=== PATIENT | female | born 1950 | race Caucasian/White ===

== ENCOUNTER → 2016-09-26 | Outpatient (CLI) | payer BC ==
[~2016-09-26] MED LIST: ASPI-482 PO; DICY10CA3 PO; LISI-334 PO; METF500T4 PO; METO25TA9 PO; PRAS10TA9 PO; RANI300T3 PO; SIMV40TA3 PO
--- NOTE | 2016-09-26 14:08 | RAD ---
DATE: 09/26/2016 EXAM: MAMMO SHIRA SCREENING BILATERAL HISTORY: Screening study. COMPARISON: 09/21/2015 This study was interpreted with the benefit of Computerized Aided Detection (CAD). The breast parenchyma shows scattered fibroglandular densities. Breast parenchyma level B. FINDINGS: Digital MLO and CC mammograms of both breasts were obtained. Additionally digital breast tomosynthesis (3D mammography) images of both breasts in the MLO and CC projections were performed. Comparison study is dated 09/21/2015. The breast parenchyma is composed of scattered fibroglandular densities which can obscure a lesion on mammography (breast density code B). No spiculated mass is seen. No malignant appearing calcification or area of architectural distortion is noted. Benign-appearing calcifications are seen within both breasts. Digital breast tomosynthesis images demonstrate no spiculated mass or malignant appearing calcification. Since the previous examination there has been no significant interval change. IMPRESSION: BI-RADS Category 1, negative. There is no mammographic evidence of malignancy. Routine yearly screening mammography for follow-up. BI-RADS CATEGORY: 1 NEGATIVE RECOMMENDED FOLLOW-UP: 12M 12 MONTH FOLLOW-UP PQRS compliance statement: Patient information was entered into a reminder system with a target due date 09/26/2017 for the next mammogram. Mammography is a sensitive method for finding small breast cancers, but it does not detect them all and is not a substitute for careful clinical examination. A negative mammogram does not negate a clinically suspicious finding and should not result in delay in biopsying a clinically suspicious abnormality. "Our facility is accredited by the [employer] Mammography Program."
== END | disposition home or self-care (01) ==
LOC: KCIC MAMMO 11:00
PROVIDERS: ATTEND Obstetrics & Gynecology
DX: Z12.31 Encounter for screening mammogram for malignant neoplasm of breast (principal)
CPT/HCPCS: 77063; G0202; 77067

== ENCOUNTER → 2016-09-30 | Outpatient (CLI) | payer BC, MEDICARE ==
[~2016-09-30] MED LIST changes: +PANT40TA5 PO
[2016-09-30 14:15] LABS: BASO # 0.1 x10^3/uL (0.0-0.2); BASO % 1 % (0-3); EOS % 4 % (0-3); HEMATOCRIT 40.3 % (36.0-47.0); HEMOGLOBIN 13.4 g/dL (12.0-15.5); LYMPH # 1.8 x10^3/uL (1.0-4.8); LYMPH % 30 % (24-48); MEAN CORPUSCULAR HEMOGLOBIN 31 pg (25-35); MEAN CORPUSCULAR HGB CONC 33 g/dL (31-37); MEAN CORPUSCULAR VOLUME 93 fL (79-100); MONO % 8 % (0-9); NEUT % 57 % (31-73); PLATELET COUNT 155 x10^3/uL (140-400); RED BLOOD COUNT 4.35 x10^6/uL (3.50-5.40); RED CELL DISTRIBUTION WIDTH 13.1 % (11.5-14.5)
--- NOTE | 2016-09-30 14:46 | EKG ---
[facility] [address] [place] [id number] Test Date: 2016-09-30 Test Time: 14:49:49 Pat Name: RENATO ANNE Department: Room: Gender: F Frame Stylist: KIMO : 1950 Requested By: MANJEET MARTIN Order Number: [id number] Reading MD: Koki Santana Measurements Intervals [place] Rate: 64 P: 29 WI: 144 QRS: 22 QRSD: 82 T: 44 QT: 406 QTc: 423 Interpretive Statements SINUS RHYTHM NORMAL ECG RI6.01 No previous ECG available for comparison Electronically Signed On 10-01-2016 12:15:47 CDT by Koki Santana
[2016-09-30 15:01] LABS: ALBUMIN/GLOBULIN RATIO 1.3 (1.0-1.7); CALCIUM 9.1 mg/dL (8.5-10.1); CREATININE 0.6 mg/dL (0.6-1.0); GFR 100.3; POTASSIUM 4.4 mmol/L (3.5-5.1); TOTAL PROTEIN 7.2 g/dL (6.4-8.2)
--- NOTE | 2016-09-30 15:11 | RAD ---
Chest, 2 views, 09/30/2016: History: Preop evaluation Comparison is made to a study from 04/21/2011. The heart size is normal. Coronary artery stents are projected over the superior aspect of the heart. The pulmonary vascularity is normal. No pulmonary infiltrates are seen. There is no evidence of pleural fluid or pneumothorax. IMPRESSION: 1. Coronary artery disease with stents. 2. No acute cardiopulmonary abnormality is detected.
== END | disposition home or self-care (01) ==
LOC: SURGPAT 13:46
PROVIDERS: ATTEND Obstetrics & Gynecology
DX: Z01.818 Encounter for other preprocedural examination (principal); I25.10 Atherosclerotic heart disease of native coronary artery without angina pectoris
CPT/HCPCS: 36415; 71020; 80053; 83036; 85025; 93005

== ENCOUNTER 2016-10-09 06:58 | Observation (INO) | payer BC, MEDICARE ==
[~2016-10-09] VITALS: Ht 162.6 cm; Wt 78.6 kg
[2016-10-09] VITALS (11 sets, daily range): BP systolic 118–146; BP diastolic 56–71
[~2016-10-09 06:58] MED LIST changes: +ceFAZolin 2GM PREMIX 2 GM/50 ML BAG IV ONE
[2016-10-09] MEDS ORDERED: LIDOCAINE 1% 1 ML SYRINGE. ID PRN (07:00)
[2016-10-09] MEDS ORDERED: IV RINGERS,LACTATED 1000ML 1,000 ML IV SCH (07:00)
[2016-10-09] MEDS ORDERED: PROCHLORPERAZINE 10 MG/2 ML VIAL. IV PRN (07:00)
[2016-10-09] MEDS ORDERED: MORPHINE SULFATE 2 MG/ML DISP.SYRIN. IV PRN ×2 (07:00→11:15)
[2016-10-09] MEDS ORDERED: fentaNYL PF VIAL 100 MCG/2 ML VIAL IV PRN (07:00)
[2016-10-09] MEDS ORDERED: HYDROmorphone 2 MG/ML VIAL IV PRN (07:00)
[2016-10-09] MEDS ORDERED: ONDANSETRON PF 4 MG/2 ML VIAL. IV PRN ×2 (07:00→11:15)
[2016-10-09] MEDS ORDERED: BUPIVACAINE-EPI 0.25%-1:200000 MPF 30 ML VIAL. ONE (07:26)
[2016-10-09] MEDS ORDERED: ESTROGENS, CONJ VAGINAL CREAM 30GM TUBE. ONE (07:27)
[2016-10-09] MEDS ORDERED: 0.9 % SODIUM CHLORIDE 50 ML VIAL. IJ ONE (07:29)
[2016-10-09] MEDS ORDERED: DEXAMETHASONE SOD PHOS 20 MG/5 ML VIAL. ONE (07:52)
[2016-10-09] MEDS ORDERED: PROPOFOL 20 ML IV ONE (07:52)
[2016-10-09] MEDS ORDERED: LIDOCAINE 2% PF Vial for OR 5 ML VIAL. ONE (07:52)
[2016-10-09] MEDS ORDERED: fentaNYL PF VIAL 100 MCG/2 ML VIAL ONE ×3 (07:52→10:51)
[2016-10-09] MEDS ORDERED: ROCURONIUM 100 MG/10 ML VIAL. ONE (07:52)
[2016-10-09] MEDS ORDERED: ONDANSETRON PF 4 MG/2 ML VIAL. ONE (07:52)
[2016-10-09] MEDS ORDERED: MIDAZOLAM HCL/PF 2 MG/2 ML VIAL. ONE (07:52)
[2016-10-09] MEDS ORDERED: LABETALOL 20 MG/4 ML DISP.SYRIN. ONE (09:14)
[2016-10-09] MEDS ORDERED: NEOSTIGMINE 10 MG/10 ML VIAL. ONE (09:40)
[2016-10-09] MEDS ORDERED: GLYCOPYRROLATE 1 MG/5 ML VIAL. ONE (09:40)
[2016-10-09] MEDS ORDERED: SEVOFLURANE > 120 MINUTES. IH ONE (09:54)
--- NOTE | 2016-10-09 11:02 | PDOC ---
BRIEF OPERATIVE NOTE Date: Oct 09, 2016 Pre-Op Diagnosis pelvic organ prolapse with symptomatic cystocele and rectocele Post-Op Diagnosis same simple left 4-5cm ovarian cyst Procedure Performed LAVH/BSO/ anterior and posterior repairs Surgeon Dr. Shayy Mcknight Contract Administration Manager Dr. Stephanie Claire Anesthesiologist Dr. Graham Anesthesia Type: General Blood Loss 250cc IV Fluid see anesthesia records Urine Output 300cc clear via us Specimens Obtained cervix, uterus, bilateral tubes and ovaries with left ovarian simple fluid filled cyst Findings small uterus with 2-3 degree cystocele and rectocele and 2 degree uterine prolapse and enlarged 4-5 cm simple left ovarian cyst Complications none OPerative Note [id number] SHAYY MCKNIGHT MD Oct 09, 2016 11:02
[2016-10-09] MEDS ORDERED: HYDROcodone/APAP 5/325MG 1 TAB TABLET PO PRN (11:15)
[2016-10-09] MEDS ORDERED: diphenhydrAMINE 50 MG/ML VIAL IV PRN (11:15)
[2016-10-09] MEDS ORDERED: ZOLPIDEM 5 MG TABLET. PO PRN (11:15)
[2016-10-09] MEDS ORDERED: oxyCODONE/APAP 5/325 1 TAB TABLET PO PRN (11:15)
[2016-10-09] MEDS ORDERED: MAGNESIUM HYDROXIDE 2,400 MG/30 ML ORAL.SUSP. PO PRN (11:15)
[2016-10-09] MEDS ORDERED: LACTULOSE 20 GM/30 ML SOLUTION. PO PRN (11:15)
[2016-10-09] MEDS ORDERED: CALCIUM CARBONATE 500 MG TAB.CHEW PO PRN (11:15)
[2016-10-09] MEDS ORDERED: SIMETHICONE 80 MG TAB.CHEW PO PRN (11:15)
[2016-10-09] MEDS ORDERED: 0.9 % SODIUM CHLORIDE 10 ML DISP.SYRIN. IV PRN (11:15)
[2016-10-09] MEDS ORDERED: NALOXONE 0.4 MG/ML VIAL. IV PRN (11:15)
[2016-10-09] MEDS ORDERED: diphenhydrAMINE HCL 25 MG CAPSULE PO PRN (11:15)
[2016-10-09] MEDS ORDERED: MAG HYDROX/ALUMINUM HYD/SIMETH 30 ML ORAL.SUSP PO PRN (11:15)
[2016-10-09] MEDS ORDERED: PROCHLORPERAZINE 10 MG/2 ML VIAL. ONE (11:27)
[2016-10-09] MEDS: fentaNYL PF VIAL 100 MCG/2 ML VIAL IV PRN ×2 (11:45→12:09)
[2016-10-09] MEDS: KETOROLAC TROMETHAMINE 30 MG/ML INJ. IV PRN ×2 (14:41→21:43)
[2016-10-09] MEDS ORDERED: ERYTHROMYCIN 0.5% OPHTH OINTMENT 1GM TUBE. OS ONE (19:00)
--- NOTE | 2016-10-10 01:42 | ACF ---
Admission Forms Criteria PAIN MANAGEMENT GR Clinical Indications for Admission to Inpatient Care (Place 'X' for any and all applicable criteria): Hospital admission is needed for appropriate care of the patient because of 1 or more of the following are present (1)(2)(3)(4)(5): [ X]I. Severe pain requiring acute inpatient management as indicated by 1 or more of the following (2)(5)(10): [ X]a) Continuous or frequent (eg, every 2 to 4 hours) parenteral analgesics required [A] [ ]b) Necessity (ie, alternative approaches not effective) for analgesic regimen that can only be performed or initiated in inpatient setting [ ]II. Pain causing debilitation to the point of inability to function or be supported at any other level of care [ ]III. Severe side effects from pain medications as indicated by ANY ONE of the following (12)(13)(14)(15): [ ]a) Uncontrollable seizures [ ]b) Cardiac arrhythmias of immediate concern [ ]c) Dehydration that is severe or persistent [ ]d) Vomiting that is severe or persistent [ ]e) Altered mental status that is severe or persistent [ ]f) Obstipation with inadequate GI function to maintain nutrition The original [employer] content created by [employer] has been revised. The portions of the content which have been revised are identified through the use of italic text or in bold, and [facility] has neither reviewed nor approved the modified material. All other unmodified content is copyright [employer]. Please see references footnoted in the original [employer] edition 2016 Admission Criteria Met?: Yes MARYA ETIENNE Oct 10, 2016 01:42
[2016-10-10 05:56] LABS: CALCIUM 8.5 mg/dL (8.5-10.1); CREATININE 0.7 mg/dL (0.6-1.0); POTASSIUM 4.4 mmol/L (3.5-5.1)
--- NOTE | 2016-10-10 08:44 | PDOC ---
SURGICAL PROGRESS NOTE Subjective Doing well without complaints. Min vag bleeding, voiding well without catheter and eating a full/reg diet this am. Wants to go home Vital Signs Vital Signs Date Time Temp Pulse Resp B/P (MAP) Pulse Ox O2 Delivery O2 Flow Rate FiO2 10/09/16 23:12 97.7 108 16 133/66 (88) 97.7 10/09/16 22:20 Room Air 10/09/16 22:16 3.0 10/09/16 12:46 96 I&O Intake and Output 10/10/16 07:00 Intake Total 1820 ml Output Total 1400 ml Balance 420 ml Intake Oral 20 ml IV Total 1800 ml Output Urine Total 1400 ml # Voids 3 PATIENT HAS A MARSHALL: No General: Alert, Oriented X3, Cooperative, No acute distress HEENT: Atraumatic Heart: Regular rate Abdomen: Soft, No tenderness, Other (all port sites c/d/i) Extremities: No clubbing, No cyanosis, No edema Skin: No rashes, No breakdown Psych/Mental Status: Mental status NL, Mood NL Labs Laboratory Tests Test 10/09/16 11:14 10/10/16 04:00 10/10/16 05:00 Glucose (Fingerstick) 209 mg/dL (70-99) Sodium Level 136 mmol/L (136-145) Potassium Level 4.4 mmol/L (3.5-5.1) Chloride Level 102 mmol/L (98-107) Carbon Dioxide Level 23 mmol/L (21-32) Anion Gap 11 (6-14) Blood Urea Nitrogen 8 mg/dL (7-20) Creatinine 0.7 mg/dL (0.6-1.0) Estimated GFR (Cockcroft-Gault) 84.0 Glucose Level 208 mg/dL (70-99) Calcium Level 8.5 mg/dL (8.5-10.1) Hematocrit 33.7 % (36.0-47.0) Laboratory Tests Test 10/09/16 11:14 10/10/16 04:00 10/10/16 05:00 Glucose (Fingerstick) 209 mg/dL (70-99) Sodium Level 136 mmol/L (136-145) Potassium Level 4.4 mmol/L (3.5-5.1) Chloride Level 102 mmol/L (98-107) Carbon Dioxide Level 23 mmol/L (21-32) Anion Gap 11 (6-14) Blood Urea Nitrogen 8 mg/dL (7-20) Creatinine 0.7 mg/dL (0.6-1.0) Estimated GFR (Cockcroft-Gault) 84.0 Glucose Level 208 mg/dL (70-99) Calcium Level 8.5 mg/dL (8.5-10.1) Hematocrit 33.7 % (36.0-47.0) I have reviewed the following labs, vitals, nursing Cardiovascular: HTN, Other (CAD) Pulmonary: No pertinent hx Heme/Onc: No pertinent hx Problem List POD#1 s/p LAVH/BSO/anterior and posterior repairs Routine po care d/c to home NPV x 6 weeks Light/limited x [address] while on narcotic pain pills keep scheduled follow up ok to resume home meds with baby ASA and ibuprofen or aleve Call or return sooner if have any other questions or concerns not limited to but including pain unrelieved with pain meds, increased or unexplained vaginal bleeding or T>100.4 Problems: MANJEET MARTIN MD Oct 10, 2016 08:44
--- NOTE | 2016-10-10 08:47 | PDOC3 ---
Discharge Summary Visit Information Date of Admission: Oct 09, 2016 Date of Discharge: Oct 10, 2016 Admitting Diagnosis Comment: pelvic organ prolapse Brief Hospital Course Allergies Allergies Coded Allergies Type Severity Reaction Last Updated Verified atorvastatin Allergy Intermediate Rash 10/09/16 Yes meperidine Adverse Reaction Intermediate dizziness 10/09/16 Yes Vital Signs Vital Signs Date Time Temp Pulse Resp B/P (MAP) Pulse Ox O2 Delivery O2 Flow Rate FiO2 10/09/16 23:12 97.7 108 16 133/66 (88) 97.7 10/09/16 22:20 Room Air 10/09/16 22:16 3.0 10/09/16 12:46 96 Lab Results Laboratory Tests Test 10/09/16 11:14 10/10/16 04:00 10/10/16 05:00 Glucose (Fingerstick) 209 mg/dL (70-99) Sodium Level 136 mmol/L (136-145) Potassium Level 4.4 mmol/L (3.5-5.1) Chloride Level 102 mmol/L (98-107) Carbon Dioxide Level 23 mmol/L (21-32) Anion Gap 11 (6-14) Blood Urea Nitrogen 8 mg/dL (7-20) Creatinine 0.7 mg/dL (0.6-1.0) Estimated GFR (Cockcroft-Gault) 84.0 Glucose Level 208 mg/dL (70-99) Calcium Level 8.5 mg/dL (8.5-10.1) Hematocrit 33.7 % (36.0-47.0) Laboratory Tests Test 10/09/16 11:14 10/10/16 04:00 10/10/16 05:00 Glucose (Fingerstick) 209 mg/dL (70-99) Sodium Level 136 mmol/L (136-145) Potassium Level 4.4 mmol/L (3.5-5.1) Chloride Level 102 mmol/L (98-107) Carbon Dioxide Level 23 mmol/L (21-32) Anion Gap 11 (6-14) Blood Urea Nitrogen 8 mg/dL (7-20) Creatinine 0.7 mg/dL (0.6-1.0) Estimated GFR (Cockcroft-Gault) 84.0 Glucose Level 208 mg/dL (70-99) Calcium Level 8.5 mg/dL (8.5-10.1) Hematocrit 33.7 % (36.0-47.0) Brief Hospital Course Ms. Barry is a 66 old female who presented with symptomatic pelvic organ prolapse and occ pelvic pain. She underwent and LAVH/BSO with anterior and posterior repairs without complicaitons yesterday. She has had an unremarkable postoperative course and eating/drinking/ambulating and voiding well. She will go home today. Discharge Information Condition at Discharge: Improved Follow Up: Weeks Disposition/Orders: D/C to Home Scheduled Aspirin (Aspir 81), 1 TAB PO DAILY, (Reported) Dicyclomine Hcl (Dicyclomine Hcl), 1 CAP PO TID, (Reported) Dicyclomine Hcl (Dicyclomine Hcl), 20 MG PO DAILY, (Reported) Lisinopril (Lisinopril), 1 TAB PO DAILY, (Reported) Metformin Hcl (Metformin Hcl), 1 TAB PO BID, (Reported) Metoprolol Succinate (Metoprolol Succinate ( Xl )), 1 TAB PO DAILY, (Reported) Simvastatin (Simvastatin), 1 TAB PO QHS, (Reported) Scheduled PRN Pantoprazole Sodium (Pantoprazole Sodium), 1 TAB PO DAILY PRN for INDIGESTION, ( Reported) Patient Instructions Patient Instructions POD#1 s/p LAVH/BSO/anterior and posterior repairs Routine po care d/c to home NPV x 6 weeks Light/limited x [address] while on narcotic pain pills keep scheduled follow up ok to resume home meds with baby ASA and ibuprofen or aleve Call or return sooner if have any other questions or concerns not limited to but including pain unrelieved with pain meds, increased or unexplained vaginal bleeding or T>100.4 MANJEET MARTIN MD Oct 10, 2016 08:47
[2016-10-10 09:47] VITALS: BP 124/69
--- NOTE | 2016-10-10 11:26 | OP ---
DATE OF SURGERY: 10/09/2016 PREOPERATIVE DIAGNOSIS: Symptomatic pelvic organ prolapse with cystocele, rectocele and cervical and uterine descent. POSTPERATIVE DIAGNOSIS: Symptomatic pelvic organ prolapse with cystocele, rectocele and cervical and uterine descent with what appeared to be a simple left ovarian cyst, fluid filled, 4-5 cm. PROCEDURE PERFORMED: Laparoscopic-assisted vaginal hysterectomy, bilateral salpingo-oophorectomy, anterior and posterior colporrhaphy with perineoplasty. SURGEON: Dr. Manjeet Mcknight. INDUSTRIAL [employer] MAGISTRATE: Dr. Stephanie Claire. ANESTHESIOLOGIST: Dr. Graham. ANESTHESIA: General. ESTIMATED BLOOD LOSS: 250 mL. URINE OUTPUT: 300 mL, clear via Davison catheter. COMPLICATIONS: None. SPECIMENS: Cervix, uterus, bilateral tubes and ovary with a simple left ovarian fluid filled cyst as stated above. HISTORY OF PRESENT ILLNESS: This patient was taken to the operating room where general anesthesia was placed. The patient was placed in a dorsal lithotomy position in [facility]. The patient's abdomen and vagina were prepped and draped in the normal sterile fashion and a Davison catheter was inserted under sterile technique. After performing a timeout, a bivalve speculum was placed in the patient's vagina. A single-tooth tenaculum was used to grasp the anterior lip of the cervix. A 10 mL of local was circumferentially injected around the cervix for both hemodissection and hemostatic purposes later. The Valtchev uterine manipulator was placed through the endocervical os, locked on the single tooth tenaculum and the bivalve speculum was then removed. Top gloves were discarded and changed. Attention was then turned to the abdomen where a small supraumbilical skin incision was made with the scalpel and carried down to the underlying layer with curved Lita clamps to the fascia. The 5 mm Visiport was used to directly enter the abdominal cavity. Opening patient pressure was 2-3 mmHg. Direct abdominal placement was confirmed via the laparoscope. Carbon dioxide gas was used to then appropriately insufflate the abdominal cavity to maintain a pressure of 15 mmHg. Right and left 5 mm disposable Ethicon ports were placed on the right and left side after transilluminating the abdominal cavity, finding an area clear of any vessels, making a small incision and putting it under direct visualization without difficulty. The left side had some very mild adhesions, but it was lateral to the ovary. The left side did have a cystic structure on the left ovary, but it appear to be simple and fluid filled and it was not attached to anything easily mobile, picked up and no adhesions to this. So, starting at the left round ligament it was cauterized and cut with the LigaSure Advance, creating a window in the mesosalpinx, going down and making the bladder flap sharply with the monopolar tip, elevating the left tube and ovary, finding the ureter, coursing very low, staying high on the infundibulopelvic ligament, right under the ovary, cauterizing and cutting it as well, going down, obtaining the uterine vessels on the left side and this was done exactly the same on the right side. Then, starting at the right round ligament, cauterizing and cutting it, going down and further meeting that bladder flap anteriorly, elevating the right tube and ovary, it was small and normal, finding the ureter, coursing very low in the pelvis, staying high on the infundibulopelvic ligament, right under the ovary, cauterizing and cutting it, again taking the tube and ovary on this side as well, going and down and getting the right uterine vessels. At this point, the uterus was blanching and crossing contralaterally through the cardinal and broad ligaments down to the level of the uterosacral all the while making sure the bladder was down and pushing and then up on the uterus and hugging the cervix, staying vertical right neck to the cervix and taking the pedicles. Once this was done, all instruments were removed from the abdomen and attention was turned vaginally. The Valtchev and single tooth were removed. A weighted speculum was placed in the patient's vagina. Thyroid Ck clamps were placed on the anterior and posterior lips of the cervix respectively. A scalpel was used to make a circumferential incision in the cervix. There was a large cystocele and it was kind of odd, but I felt like I was going deep into the cervix, but I did not want to do bladder, so I went ahead and elevated the cervix and got in posteriorly first with the Coates scissors sharply entering the posterior cul-de-sac, placing an #0 Vicryl suture here to secure the posterior peritoneum to the vaginal cuff and tagging it with a curved Lita clamp. The needle was cut and passed off. The short weighted speculum was removed and replaced with the long weighted Gustabo speculum. At this point, I was able to take my finger around and feel the bladder. We were able to gently push up on the sides and find the anterior bladder peritoneum and get the plane here and then using the Coates scissors to delineate this plane even better, sharply entering the anterior cul-de-sac once it was clear and apparent where it was. So there was no anterior Ray-Homer put in the cul-de-sac. It was sharply entered with the Metzenbaum scissors and then the retractor was placed in the anterior cul-de-sac. Curved Usman clamps x 2 were placed on the patient's left uterosacral ligament. They were doubly clamped with curved Usman's, cut with Coates scissors and suture ligated x 2 with 0 Vicryl. A second one was taken through the vaginal cuff, securing the uterosacral ligament to the vaginal cuff, tagged with a straight Lita clamp and the needle was cut and passed off. This was done exactly the same on the right side, double clamping the uterosacrals with curved Heaneys, cutting with Coates scissors and suture ligating x 2 with #0 Vicryl, again taking the second one through the vaginal cuff and tagging it with a straight Lita clamp and cutting the needle off. At this point, the remaining pedicles on both sides were delineated with the right angle clamp and the vaginal LigaSure Max was used to take these bites, cauterizing and cutting with the Coates scissors. Once it was done, the cervix, uterus, right tube and ovary. The left ovary was enlarged with that cystic structure and it was getting ____ so it actually had kind of torn off the rest of the specimen, so the specimen was passed off. I did get a syringe and deflate some of that cystic fluid from the ovary, got about 10 mL off of clear straw-colored fluid and it then easily pulled out vaginally. All the specimen was passed off in total for permanent pathology then. The anterior bladder peritoneum was grasped with a long Allis. A sponge stick was used to examine the pedicles. Once they were dry, the long weighted speculum was removed and replaced with the short weighted speculum. A 2-0 Vicryl was taken through the anterior bladder peritoneum, left uterosacral ligament, posterior peritoneum and right uterosacral ligament, thus closing the peritoneum in a pursestring like fashion. Once this was done, the right and left uterosacral tags were clipped as well and before closing the cuff, a curved Max's were placed on the anterior cuff then it was injected with I think about 30 mL of a dilute 4 parts of injectable saline, 5 to 1 part local, so 250 mL dilute solution, 30 mL were injected in the anterior vaginal mucosa. Metzenbaum scissors were used to then open up the anterior bladder defect and sharply and bluntly with both an open Ray-Homer and the Metzenbaum scissors were used to take down the defect off the anterior vaginal mucosa. Once this was done, a series of about 5 or 6 interrupted 2-0 Vicryl sutures were placed and tagged along the way and then going back and reducing the defect and tying them. Once it was reduced, the excess vaginal mucosa was trimmed with Metzenbaum scissors and it was closed in an anterior to posterior running locked fashion, even down through the vaginal cuff and tied to that posterior vaginal cuff tag. Once this was done, the curved Max's again were placed at 4 and 7 o'clock at the introitus and about 40-50 mL of that dilute solution was used to inject on the perineal body and the posterior defect. Scalpel was used to take a wedge-shaped, rico shaped out of the introitus on the perineal body and inside and then Metzenbaum scissors were used to open up the posterior defect again sharply and bluntly using the Metzenbaum scissors and an open Ray-Homer 4 x 4 were used to gently reduce the posterior defect. Once it was reduced, about 5 interrupted 2-0 Vicryl sutures were used to reduce the posterior defect as well and then trimming the exterior posterior vaginal mucosa and closing that defect in an anterior to posterior running locked fashion. Once I got down to the introitus and the ____ opening, it was taken through and the perineal body was closed in a more like an episiotomy, reapproximating the sides and then superficially closing the skin over the top as well, kind of lengthening that perineal body a little bit and going back and then tying it vaginally. Once this was done and it was hemostatic. All gloves were discarded and changed then attention was turned back to the abdomen for a second look from above. Reinsufflated the abdominal cavity and going back in for a second look, clearing out any clots and debris, irrigating revealed hemostasis. Tisseel was placed over the cuff, right and left pericolic gutters were cleared. Once hemostasis was assured, the right and left lower quadrant ports were taken out under direct visualization, these were also hemostatic. Gas was released from the umbilical port. All three port sites were closed with 4-0 nylon at the level of the skin and injected with 10 mL of local. MANJEET MCKNIGHT MD DR: JOSIAH/taryn JOB#: [id number] / [id number]
--- NOTE | 2016-10-10 17:18 | PATHOLOGY ---
PATHOLOGY REPORT * * * * * * * * FINAL DIAGNOSIS: Uterus and attached right fallopian tube and ovary and detached left ovary, laparoscopic-assisted vaginal hysterectomy with right salpingo-oophorectomy and left oophorectomy: - Focal hemorrhage and mild chronic inflammation of exocervix. - Nabothian cysts, cervix, small. - Extensive obliteration of endometrium with replacement by thin myometrial scar. - Congestion and involutional changes of right fallopian tube. - Involutional changes of right ovary. 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 COMMENT: There is no evidence of malignancy. (JPM:mgr; 10/10/2016) REPORT ELECTRONICALLY SIGNED BY: Hayder Pandey M.D. DATE/TIME: 10/10/2016 17:17 * * * * * * * * GROSS PATHOLOGY: The specimen is received in formalin and is designated "uterus, cervix, bilateral tubes and ovaries, left ovarian cyst." The specimen is received in two parts. The first consists of a uterus with attached right fallopian tube and ovary, and a separate detached apparent left ovarian cyst. The uterus weighs 59 grams and measures up to 8.5 cm in length, 5.0 cm in width, and 3.0 cm in anterior posterior thickness. The uterine serosa is pink to grayish chung and somewhat dull. There is hemorrhagic roughening along the parametrial margins. The exocervix and distal cervix are torn. Where visible, the exocervical epithelium is chung and shows focal hemorrhage. The uterus is opened anteriorly. The endocervical canal measures approximately 3.0 cm in length and is focally disrupted and roughened. The endocervical mucosa is focally erythematous. The endometrial cavity is largely obliterated and consists of an elongate thin scar and slit-like channel within the mid portion of the uterine corpus, measuring up to 3.5 cm in length. The cavity appears largely replaced by pale guzman fibrous tissue. The myometrial wall is pink-chung, rubbery, and congested. There are no discrete masses within the myometrium. The tortuous distal fimbriated right fallopian tube remnant measures up to 3.4 cm in length and 0.6 cm in width. The serosa is pink-guzman and focally erythematous. This is attached chung partially cerebriform atrophic appearing ovary measuring up to 2.0 cm in greatest dimension. Sectioning reveals a pink-chung cut surface with pale chung corpora albicans. The left fallopian tube is not identified. The detached left ovary is cystic and fluctuant and measures up to 5.0 cm in greatest dimension. The external surface is pink-guzman and without papillary excrescences. The ovary is opened and contains clear fluid. The cyst lining is pale guzman to pinkish red and smooth and without papillary excrescences. Portions of the wall of the cyst measure less than 0.1 cm in thickness. There are focal yellow-chung slightly thickened areas of the cyst wall. Sections are submitted as follows: A1 sections from cervix and endocervix A2-A4 endomyometrium A5 right fallopian tube and ovary A6 cystic left ovary (JPM:mgr; 10/09/2016) INITIAL CPT CODE(S): 17734 Professional services performed by [facility] [place] [address] Technical services performed by [facility] at [address] [place] [address], [address], [place] [address]. SPECIMEN(S) RECEIVED: A.Uterus, cervix, bilateral tubes and ovaries, left ovarian cyst CLINICAL HISTORY: Rectocele, uterine prolapse, cystocele, midline, recurrent UTI PATIENT: RENATO ANNE /AGE: 7 1950 (Age: 66) PATIENT #: [id number] ALT CASE #: SPECIMEN COLLECTION DATE: 10/09/2016 SPECIMEN RECEIVED DATE: 10/09/2016 [facility] - [id number] [place] [address] - PHONE: [phone] * * * END OF REPORT * * *
== END 2016-10-10 11:28 | disposition home or self-care (01) ==
LOC: SURG 06:58 → 3 NORTH 11:40
PROVIDERS: ADMIT Obstetrics & Gynecology; ATTEND Obstetrics & Gynecology
DX: N81.4 Uterovaginal prolapse, unspecified (principal); N81.10 Cystocele, unspecified; N81.6 Rectocele
CPT/HCPCS: 36415; 56810; 57260; 58552; 80048; 82962; 85014; 86850; 86900; 86901; 88307; 96374; 96376; C1769; G0378; G0379; J0690; J0780; J1100; J1885; J2250; J2405; J2704; J2710; J3010; J3490; J7030; J7120; J2001

== ENCOUNTER → 2019-02-22 | Outpatient (CLI) | payer MEDICARE ==
[~2019-02-22] MED LIST changes: +METF500T16 PO; -METF500T4 PO; +METO-239 PO; -METO25TA9 PO; -PANT40TA5 PO; +PANT40TA77 PO; +SIMV40TA18 PO; -SIMV40TA3 PO; -ceFAZolin 2GM PREMIX 2 GM/50 ML BAG IV ONE
--- NOTE | 2019-02-22 15:11 | KCIC ---
Bilateral digital screening mammograms with 3-D tomosynthesis: Reason for examination: Routine screening. Comparison is made to previous studies dated 09/26/2016 and 09/21/2015. Bilateral mammograms in CC and oblique projections were obtained with 2-D imaging and 3-D tomosynthesis imaging on a [employer] Inspiration unit and reviewed on the workstation. Interpretation was made with the benefit of CAD. The skin and nipples show no abnormalities. No abnormal axillary lymph nodes are seen. The breast parenchyma is predominantly fatty. (Breast density: Category A.) There are no dominant masses, suspicious calcifications or architectural distortion. Scattered benign calcifications are seen. Impression: No evidence of malignancy. Recommend routine screening. BI-RAD Category 2: Benign. "Our facility is accredited by the [employer] Mammography Program." This patient's information has been entered into a reminder system for the patient to be notified with the results of her examination and a target date for the next mammogram. Electronically signed by: Cassie Neal MD (02/22/2019 3:08 PM) [id number]
== END | disposition home or self-care (01) ==
LOC: KCIC MAMMO 11:58
PROVIDERS: ATTEND Obstetrics & Gynecology
DX: Z12.31 Encounter for screening mammogram for malignant neoplasm of breast (principal); N64.89 Other specified disorders of breast
CPT/HCPCS: 77063; 77067

== ENCOUNTER → 2020-01-02 | Outpatient (CLI) | payer MEDICARE ==
[~2020-01-02] MED LIST changes: +IOHEXOL 240 MG/ML 50ML VIAL. PO ONE; +IOHEXOL 300 MG/ML 100ML VIAL. IV ONE
--- NOTE | 2020-01-02 17:27 | KCIC ---
EXAM: CT Abdomen and Pelvis with IV contrast INDICATION: Reason: LOWER ABDOMINAL PAIN / Spl. Instructions: ORAL AND IV OMNI 300 89ml / History: PRIOR CT A/P 08/22/14 TECHNIQUE: Multi-detector row CT images were acquired from the lung bases through the abdomen and pelvis with the use of IV contrast. Sagittal and coronal images were acquired from the transaxial data. All CT scans performed at this facility utilize dose optimization techniques as appropriate to the exam, including the following: Automated exposure control and adjustment of the mA and/or KV according to patient size (this includes techniques or standardized protocols for targeted exams where dose is indication/reason for exam). IV CONTRAST: Administered ORAL CONTRAST: Administered COMPARISON: Abdomen pelvis CT with oral and IV contrast of 08/22/2014 FINDINGS: LOWER CHEST: Coronary calcifications and stents redemonstrated. LIVER: Unremarkable BILIARY SYSTEM: Gallbladder is unremarkable. Bile ducts are not dilated. PANCREAS: Unremarkable SPLEEN: Unremarkable ADRENALS: Unremarkable KIDNEYS & URETERS: Right renal cysts are unchanged and requiring no additional imaging follow-up. Kidneys otherwise unremarkable. BLADDER: Diffuse bladder wall thickening evident previously has improved but there is a small dot of intraluminal gas that is unexplained. REPRODUCTIVE ORGANS: Hysterectomy. Ovaries not seen and may be surgically absent as well. This is new from prior. GASTROINTESTINAL: Stomach and small bowel are unremarkable. Large bowel is unremarkable up to the splenic flexure where diffuse wall thickening and mild pericolonic stranding is seen extending down to the sigmoid colon. The appendix is normal. MESENTERY/PERITONEUM/RETROPERITONEUM: Unremarkable VASCULAR: Scattered arterial calcifications. No aneurysm LYMPH NODES: No adenopathy OSSEOUS & SOFT TISSUES: Posterior decompressive surgical changes at L5-S1 the setting of a disc osteophyte complex. No acute or aggressive appearing osseous lesions. IMPRESSION: 1. Findings compatible with mild descending colitis. No bowel obstruction or perforation. 2. Small focus of gas in the urinary bladder lumen is of uncertain etiology. Status post interval hysterectomy, a vaginovesical fistula is possible. Correlate with the clinical history. Electronically signed by: Demetri Triplett MD (01/02/2020 5:24 PM) [id number]
== END ==
LOC: KCIC CT 12:27
PROVIDERS: ATTEND Internal Medicine Gastroenterology
DX: K52.89 Other specified noninfective gastroenteritis and colitis (principal); R10.30 Lower abdominal pain, unspecified; K62.5 Hemorrhage of anus and rectum; M25.78 Osteophyte, vertebrae
CPT/HCPCS: 74177; 82565; Q9966; Q9967

== ENCOUNTER → 2020-02-24 | Outpatient (CLI) | payer MEDICARE ==
[~2020-02-24] MED LIST changes: -IOHEXOL 240 MG/ML 50ML VIAL. PO ONE
--- NOTE | 2020-02-24 14:03 | KCIC ---
EXAM: Abdomen and pelvis CT angiogram with intravenous contrast. HISTORY: Colitis. TECHNIQUE: Computed tomographic images of the abdomen and pelvis were obtained with contrast. Multipl sonya reformatting was performed. Three-dimensional maximum intensity projection images were obtained. *One or more of the following individualized dose reduction techniques were utilized for this examina tion: 1. Automated exposure control. 2. Adjustment of the mA and/or kV according to patient size. 3. Use of iterative reconstruction technique. COMPARISON: 08/22/2014. FINDINGS: Evaluation of the lower thorax demonstrates posterior dependent atelectasis. There is no in filtrate or pleural effusion. The heart is normal in size. There is no suspicious hepatic lesion. The gallbladder is distended, likely due to the preprandial status of the patient. There is a small prox imal duodenal diverticulum. The pancreas is unremarkable. The spleen is upper normal in size. The adr enal glands are unremarkable. There are small simple right renal cysts. Follow-up is not routinely recommended for simple renal cys ts. There is no appendicitis. There is no bowel obstruction. There is no abnormal bowel wall thickeni ng. The bladder is unremarkable. The uterus is absent. The aorta is normal in caliber. There is calcified atherosclerotic plaque involving the aorta and rosendo n aortic branch vessels. This results in less than 50 percent stenosis at the origins of the celiac a xis and superior mesenteric artery. There is also less than 50 percent stenosis at the origins of the renal arteries. The inferior mesenteric artery is patent. 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 There is relative hypodensity within the left renal vein lateral to the varix due to suspected mixing of contrast. This extends to the left renal artery. There are degenerative changes involving the spine. This includes a broad-based left paracentral to f oraminal disc protrusion and osteophyte complex at L5-S1. There is moderate bilateral facet arthropat hy this level and there are partial laminectomy changes at this level. There is moderate left and mil d right foraminal stenosis. There is suspected pelvic floor relaxation. IMPRESSION: 1. Resolution of previously suspected colitis. 2. Partially calcified atherosclerotic plaque involving the aorta and aortic branch vessels. This res ults in less than 50 percent stenosis involving the celiac axis, superior mesenteric artery, renal ar teries and inferior mesenteric artery. 3. Small simple appearing right renal cysts. Follow-up isn't routinely recommended for simple cysts. 4. Left gonadal vein varix. Electronically signed by: Mariajose Caballero MD (02/24/2020 1:58 PM) [id number]
== END ==
LOC: KCIC CT 10:40
PROVIDERS: ATTEND Internal Medicine Gastroenterology
DX: N28.1 Cyst of kidney, acquired (principal); K52.9 Noninfective gastroenteritis and colitis, unspecified; M25.78 Osteophyte, vertebrae; I70.0 Atherosclerosis of aorta; N32.89 Other specified disorders of bladder
CPT/HCPCS: 74174; 82565; Q9967

== ENCOUNTER → 2020-12-06 | Outpatient (CLI) | payer MEDICARE ==
[~2020-12-06] MED LIST changes: -LISI-334 PO; +LISI20TA18 PO
--- NOTE | 2020-12-06 15:54 | KCIC ---
CT angiography of the abdomen 12/06/2020 INDICATION: Celiac artery stenosis. COMPARISON STUDY: CTA February 24, 2020 TECHNIQUE: Multidetector CT imaging of the abdomen was performed following the administration of IV c ontrast. 3-D reconstructions of abdominal vasculature were created on an independent workstation and reviewed. FINDINGS: The abdominal aorta is unremarkable in course and caliber without evidence of aneurysm or d issection. Mild diffuse atherosclerotic vascular disease is seen. There is approximately 25 % stenosi s of the proximal celiac artery. Superior mesenteric artery is patent. There are 2 right-sided renal arteries both of which are patent. Single left sided renal artery is patent. Inferior mesenteric andrea ry is patent. The bilateral common iliac arteries appear to be grossly patent. There is a prominent c ommunication between the inferior mesenteric vein and left gonadal vein possibly due to a stenosis of the splenic vein at the confluence with the superior mesenteric vein. The appearance suggests that t his is most likely incidental. Lung bases are unremarkable. Probable cholelithiasis noted. Liver is u nremarkable. Spleen is unremarkable. Adrenal glands are unremarkable. Pancreas is unremarkable. Kidne ys are grossly unremarkable. Visualized bowel is grossly unremarkable. No acute osseous changes are i dentified. IMPRESSION: 1. 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 2. No other significant mesenteric or aortoiliac stenosis is identified 3. Probable cholelithiasis CT DOSING PQRS STATEMENT: One or more of the following individualized dose reduction techniques were utilized for this examinat ion: 1. Automated exposure control 2. Adjustment of the mA and/or kV according to patient size 3. Use of iterative reconstruction technique Electronically signed by: Brock Page MD (12/06/2020 3:51 PM) [id number]
== END ==
LOC: KCIC CT 13:36
PROVIDERS: ATTEND Family Medicine
DX: I77.4 Celiac artery compression syndrome (principal); I25.10 Atherosclerotic heart disease of native coronary artery without angina pectoris
CPT/HCPCS: 74175; 82565; Q9967

== ENCOUNTER → 2021-01-22 | Outpatient (CLI) | payer MEDICARE ==
[~2021-01-22] MED LIST changes: -IOHEXOL 300 MG/ML 100ML VIAL. IV ONE
--- NOTE | 2021-01-22 16:56 | KCIC ---
EXAMINATION: US ABDOMEN COMPLETE 01/22/2021 9:02 AM INDICATION: Right flank pain cholelithiasis on CT TECHNIQUE: Mccarty scale and color Doppler ultrasound images of the abdomen were obtained. COMPARISON: CT abdomen pelvis 12/05/2020. FINDINGS: Liver: The liver is normal in size measuring 13 cm in length. There is diffusely increased hepatic ec hogenicity. No focal liver lesion. Gallbladder: The gallbladder is normal in caliber. Small echogenic shadowing calculi in the gallblad teresa lumen. Gallbladder wall is normal in thickness measuring 1.6 mm. Bile ducts: The common bile duct is normal measuring 2 mm. No intrahepatic biliary duct dilatation. Kidneys: The right kidney measures 10.2 x 5.0 x 5.2 cm. The left kidney measures 11.3 x 4.4 x 4.6 cm . Normal cortical thickness and echogenicity bilaterally. No hydronephrosis. There is a 1.5 cm simp le cyst in the right kidney. Spleen: Spleen is normal measuring 11 cm. Other: The mid and distal abdominal aorta are normal in caliber. Proximal aorta, pancreas, and inferi or vena cava are not well visualized due to bowel gas. IMPRESSION: 1. Hepatic steatosis. 2. Cholelithiasis. 3. Proximal abdominal aorta, pancreas, inferior vena cava are partially obscured by bowel gas. Electronically signed by: Constance Jean MD (01/22/2021 4:54 PM) [id number]
== END ==
LOC: KCIC US 08:44
PROVIDERS: ATTEND Physician Assistant
DX: K80.20 Calculus of gallbladder without cholecystitis without obstruction (principal); K76.0 Fatty (change of) liver, not elsewhere classified
CPT/HCPCS: 76700

== ENCOUNTER → 2021-02-25 | Outpatient (CLI) | payer MEDICARE ==
--- NOTE | 2021-02-25 13:44 | KCIC ---
Bone Densitometry History: Menopause Findings: Bone Densitometry was performed with dual photon absorption of the lumbar spine and proximal femurs. Lumbar Spine: Bone density is 1.269 g/cm2 for L1-L4. T-score is 2.0. Z-score is 4.1. Left femoral neck: Bone density is 0.914 g/cm2. T-score is -0.2. Z-score is 1.2. IMPRESSION: Bone mineral densities of the lumbar spine and femoral necks are normal. World Health Organization definition of osteoporosis and osteopenia for women: normal equal s T score at or above -1.0 standard deviations; osteopenia equals T score between -1.0 and -2.5 stand antelmo deviations; osteoporosis equals T score at or below -2.5 standard deviations. Electronically signed by: Constance Jean MD (02/25/2021 1:41 PM) [id number]
--- NOTE | 2021-02-25 14:42 | KCIC ---
Bilateral digital screening mammograms with 3-D tomosynthesis: Reason for examination: Routine screening. Comparison is made to previous studies dated back to 09/07/2014. Bilateral mammograms in CC and oblique projections were obtained with 2-D imaging and 3-D tomosynthes is imaging on a [employer] Inspiration unit and reviewed on the workstation. Interpretation was made with the benefit of CAD. The skin and nipples show no abnormalities. No abnormal axillary lymph nodes are seen. The breast par enchyma is predominantly fatty. (Breast density: Category A.) There appears to be a small new nodular density in the left breast medially on the cc view probably around the 9:00 position measuring appro ximately 4 mm in size and located approximately 6.5 cm from the nipple. Further evaluation with ultra sound is recommended. There are no other new dominant masses, suspicious calcifications or architectu ral distortion. Impression: Small 4 mm nodular density medially in the left breast seen on cc view probably around the 9:00 posit ion 6.5 cm from nipple. Recommend further evaluation with ultrasound. BI-RAD Category 0: Incomplete. Needs additional imaging evaluation. "Our facility is accredited by the [employer] Mammography [employer]." This patient's information has been entered into a reminder system for the patient to be notified wit h the results of her examination and a target date for the next mammogram. Electronically signed by: Cassie Neal MD (02/25/2021 2:39 PM) [id number]
== END ==
LOC: KCIC MAMMO 12:48
PROVIDERS: ATTEND Family Medicine
DX: Z12.31 Encounter for screening mammogram for malignant neoplasm of breast (principal); Z12.39 Encounter for other screening for malignant neoplasm of breast; Z78.0 Asymptomatic menopausal state
CPT/HCPCS: 77063; 77067; 77080

== ENCOUNTER → 2021-03-06 | Outpatient (CLI) | payer MEDICARE ==
--- NOTE | 2021-03-06 14:04 | KCIC ---
Left breast ultrasound: Reason for examination: Small new nodular density on screening mammogram. Comparison is made to mammographic exam dated 02/25/2021. Ultrasound examination of the left breast and axilla was performed. At the 8:00 position 4 cm from the nipple, there is a small 6 x 4 mm hypoechoic fibrocystic type nodu le. No other cystic or solid nodules are seen. No other focal nodules are seen. No abnormal appearing lymph nodes are seen in the left axilla. IMPRESSION: Benign-appearing 6 mm fibrocystic type nodule at the 8:00 position 4 cm from the nipple. No other foc al abnormality seen. Recommend reevaluation with ultrasound in 6 months. BI-RADS Category 3: Probably Benign. "Our facility is accredited by the [employer] Mammography Program." This patient's information has been entered into a reminder system for the patient to be notified wit h the results of her examination and a target date for the next mammogram. Electronically signed by: Cassie Neal MD (03/06/2021 2:01 PM) [email or web address]
== END ==
LOC: KCIC US 13:27
PROVIDERS: ATTEND Family Medicine
DX: R92.8 Other abnormal and inconclusive findings on diagnostic imaging of breast (principal)
CPT/HCPCS: 76641